=== PATIENT | female | born 1960 | race Caucasian/White ===

== ENCOUNTER → 2020-09-27 | Day surgery (SDC) | payer OTHER ==
[~2020-09-27] MED LIST: B12 SL; BENADRYL 25MG C25 MG PO; BIOTIN PO; CALCIUM CITRATE PO; CO Q10 PO; D3 PO; FISH OIL 1,2001 EAC1 PO; FUROSEMIDE20 MG PO; HYDROCODON-ACE1 EAC4 PO; I CAPS PO; MELOXICAM7.5 MG PO; MULTI VITAMIN PO; POTASSIUM PO; PREDNISONE 50 M50 MG PO; TART CHERRY PO; TURMERIC/CURCUMIN PO; ZANTAC 150 MG150 MG PO; ZINC50 M1 PO
== END | disposition home or self-care (01) ==
LOC: OR 07:21
PROVIDERS: Surgery
PROC: 0DB48ZX Excision of Esophagogastric Junction, Via Natural or Artificial Opening Endoscopic, Diagnostic (ICD-10-PCS; principal; 2020-09-27 09:30)
PROC: 0DJD8ZZ Inspection of Lower Intestinal Tract, Via Natural or Artificial Opening Endoscopic (ICD-10-PCS; 2020-09-27 09:30)
DX: K20.90 Esophagitis, unspecified without bleeding (principal); K62.5 Hemorrhage of anus and rectum; G25.81 Restless legs syndrome; Z79.82 Long term (current) use of aspirin; Z79.899 Other long term (current) drug therapy
CPT/HCPCS: J2704; J7120

== ENCOUNTER → 2020-10-11 | Outpatient (CLI) | payer OTHER | LOC: EXRD 10:24 | DX: M25.561 Pain in right knee (principal); M25.562 Pain in left knee; G89.29 Other chronic pain; M17.11 Unilateral primary osteoarthritis, right knee | CPT/HCPCS: 73564 ==

== ENCOUNTER → 2020-12-02 | Outpatient (CLI) | payer OTHER ==
[2020-12-02 08:43] LABS: HEMOGLOBIN 13.2 gm/dl (12.3-15.3); RED BLOOD COUNT 4.2 M/UL (4.00-5.10); WHITE BLOOD COUNT 8.4 K/UL (4.5-11.0)
== END ==
LOC: RAD 07:58
PROVIDERS: Radiology Diagnostic Radiology
DX: Z01.812 Encounter for preprocedural laboratory examination (principal); M54.31 Sciatica, right side
CPT/HCPCS: 36415; 85027; 85610; 85730

== ENCOUNTER → 2021-03-01 | Outpatient (CLI) | payer OTHER | LOC: LAB 11:18 | DX: D89.9 Disorder involving the immune mechanism, unspecified (principal); M25.50 Pain in unspecified joint; R76.8 Other specified abnormal immunological findings in serum | CPT/HCPCS: 36415 ==

== ENCOUNTER → 2021-09-26 | Outpatient (CLI) | payer OTHER | LOC: KOH-I 12:08 | DX: M25.551 Pain in right hip (principal); M54.50 Low back pain, unspecified; M47.816 Spondylosis without myelopathy or radiculopathy, lumbar region; M16.11 Unilateral primary osteoarthritis, right hip; M47.818 Spondylosis without myelopathy or radiculopathy, sacral and sacrococcygeal region | CPT/HCPCS: 72100; 73502 ==

== ENCOUNTER → 2022-04-26 | Outpatient (CLI) | payer OTHER | LOC: KOH-I 15:08 | DX: Z47.1 Aftercare following joint replacement surgery (principal) | CPT/HCPCS: 73502 ==